=== PATIENT | male | born 1990 | race Two or more races ===

== ENCOUNTER 2019-08-01 01:17 | Emergency (ER) | payer SELFPAY ==
[~2019-08-01] VITALS: Ht 170.2 cm; Wt 90.0 kg
[2019-08-01 01:41] VITALS: BP 138/75
[2019-08-01] MEDS ORDERED: CYCLOBENZAPRINE 10MG TABLET PO ONE (02:00)
[2019-08-01] MEDS ORDERED: KETOROLAC 30MG/ML VIAL IM ONE (02:00)
== END 2019-08-01 02:30 | disposition home or self-care (01) ==
LOC: ER 01:17
DX: M54.31 Sciatica, right side (principal); M79.604 Pain in right leg
CPT/HCPCS: 96372; 99283; J1885

== ENCOUNTER 2019-08-15 13:55 | Emergency (ER) | payer SELFPAY ==
[~2019-08-15] VITALS: Ht 167.6 cm; Wt 85.0 kg
[2019-08-15] MEDS ORDERED: HYDROCODONE/ACETAMINOPHEN 5/325MG TABLET PO ONE (17:00)
[2019-08-15 17:31] VITALS: BP 138/89
== END 2019-08-15 17:32 | disposition home or self-care (01) ==
LOC: ER 14:12
DX: M79.661 Pain in right lower leg (principal)
CPT/HCPCS: 99283